=== PATIENT | male | born 1955 | race Caucasian/White ===

== ENCOUNTER 2020-08-10 23:20 | Emergency (ER) | payer OTHER ==
[2020-08-10] MEDS ORDERED: Acetaminophen/HYDROcodone 325-10 MG Tab PO ONE (23:21)
[2020-08-10] MEDS ORDERED: Acetaminophen/HYDROcodone 325-10 MG Tab ONE (23:51)
--- NOTE | 2020-08-10 23:54 | EDM.PDOC ---
ED HPI GENERAL MEDICAL PROBLEM - General Chief Complaint: ENT Problem Stated Complaint: SINUS, EYES ARE CLOSING Time Seen by Provider: 08/10/20 23:40 Source of Information: Reports: Patient History Limitations: Reports: No Limitations - History of Present Illness INITIAL COMMENTS - FREE TEXT/NARRATIVE: This 65 yo male patient reports to the ED with right sided sinus pressure and pain. The patient reports his symptoms have been getting worse over the past 4 days with little to no improvement with Tylenol and ibuprofen. [facility], but the patient was not given any medications for his pain. Onset: Gradual Duration: Day(s):, Constant, Getting Worse Location: Reports: Face (right sided) Quality: Reports: Ache, Pressure, Throbbing Severity: Severe Improves with: Reports: None Worsens with: Reports: None Context: Reports: Other Associated Symptoms: Reports: No Other Symptoms Treatments [employer]: Reports: NSAIDS Face/Facial Pain Score (Numeric/FACES): 6 - Related Data Allergies Allergy/AdvReac Type Severity Reaction Status Date / Time Sulfa (Sulfonamide Allergy Cannot Verified 08/10/20 23:33 Antibiotics) Remember Home Meds: Home Meds Amoxicillin/Potassium Clav [Augmentin 875-125 Tablet] 1 each PO BID 08/10/20 [History] Famotidine [Pepcid AC] 20 mg PO DAILY 08/10/20 [History] Gabapentin [Neurontin] 300 mg PO TID 08/10/20 [History] Past Medical History - Past Health History Medical/Surgical History: Denies Medical/Surgical History Social & Family History - Tobacco Use Tobacco Use Status *Q: Never Tobacco User Second Hand Smoke Exposure: No - Recreational Drug Use Recreational Drug Use: Yes Drug Use in Last 12 Months: No ED ROS ENT - Review of Systems Review Of Systems: Comprehensive ROS is negative, except as noted in HPI. ED EXAM, ENT - Physical Exam Exam: See Below Exam Limited By: No Limitations General Appearance: Alert, WD/WN, Moderate Distress Eye Exam: Bilateral Eye: EOMI, Normal Inspection, PERRL Ears: Normal External Exam, Normal Canal, Hearing Grossly Normal, Normal TMs Nose: Normal Inspection, Normal Mucousa, No Blood Mouth/Throat: Normal Inspection, Normal Gums, Normal Lips, Normal Oropharynx, Normal Teeth Head: Sinus Tenderness (right maxillary and frontal) Neck: Normal Inspection, Supple, Non-Tender, Full Range of Motion Respiratory/Chest: No Respiratory Distress, Lungs Clear, Normal Breath Sounds, No Accessory Muscle Use, Chest Non-Tender Cardiovascular: Normal Peripheral Pulses, Regular Rate, Rhythm, No Edema, No Gallop, No JVD, No Murmur, No Rub (Male) Exam: Deferred Rectal (Males) Exam: Deferred Back: Normal Inspection, Full Range of Motion Extremities: Normal Inspection, Normal Range of Motion, Non-Tender, No Pedal Edema, Normal Capillary Refill Neurological: Alert, Oriented, CN II-XII Intact, Normal Cognition, Normal Gait, Normal Reflexes, No Motor/Sensory Deficits Psychiatric: Normal Affect, Normal Mood Skin: Warm, Dry, Intact, Normal Color, No Rash Lymphatic: No Adenopathy Course - Vital Signs Last Recorded V/S: Last Vital Signs Temp 36.5 C 08/10/20 23:24 Pulse 83 08/10/20 23:24 Resp 18 08/10/20 23:24 BP 110/76 08/10/20 23:24 Pulse Ox 100 08/10/20 23:24 - Orders/Labs/Meds Meds: Medications Discontinued Medications Generic Name Dose Route Start Last Admin Trade Name Terrellq PRN Reason Stop Dose Admin Hydrocodone Bitart/Acetaminophen Confirm 08/10/20 23:51 Acetaminophen/Hydrocodone 325-10 Mg Tab Administered 08/10/20 23:52 Dose 2 tab .ROUTE .STK-MED ONE Departure - Departure Time of Disposition: 23:49 Disposition: Home, Self-Care 01 Condition: Fair Clinical Impression: Sinusitis Qualifiers: Sinusitis location: frontal Chronicity: acute Recurrence: not specified as recurrent Qualified Code(s): J01.10 - Acute frontal sinusitis, unspecified - Discharge Information *PRESCRIPTION DRUG MONITORING PROGRAM REVIEWED*: Not Applicable *COPY OF PRESCRIPTION DRUG MONITORING REPORT IN PATIENT LENORA: Not Applicable Instructions: Sinusitis, Adult, Dsal-ti-Ilnd Forms: ED Department Discharge Care Plan Goals: The patient was advised of the examination results during the visit. The patient was discharged with Dobbins () #2 to take 1 by mouth every 6 hours as needed for pain. The patient was encouraged to continue to take the Augmentin as prescribed. If the patient has any additional symptoms or concerns, the patient should either return to the emergency department or visit his primary care facility. Sepsis Event Note (ED) - Evaluation Sepsis Screening Result: No Definite Risk - Focused Exam Vital Signs: Vital Signs Temp Pulse Resp BP Pulse Ox 08/10/20 23:24 36.5 C 83 18 110/76 100
== END 2020-08-10 23:58 | disposition home or self-care (01) ==
LOC: DL.ED 23:20
DX: J01.10 Acute frontal sinusitis, unspecified (principal); Z88.2 Allergy status to sulfonamides; Z79.899 Other long term (current) drug therapy
CPT/HCPCS: 99283; A9270

== ENCOUNTER 2021-07-14 11:19 | Emergency (ER) | payer OTHER ==
[2021-07-14] MEDS ORDERED: Diphtheria,Pertussis(Acell),Tetanus Vaccine 0.5 ML Syringe IM ONE (11:31)
[2021-07-14] MEDS ORDERED: Lidocaine 1% 30 ML SDV INFILT ONE (11:32)
[2021-07-14] MEDS ORDERED: Bacitracin Oint 1 GM U/D Packet TOP ONE (11:32)
== END 2021-07-14 12:02 | disposition home or self-care (01) ==
LOC: DL.ED 11:19
DX: S61.216A Laceration without foreign body of right little finger without damage to nail, initial encounter (principal); Z88.2 Allergy status to sulfonamides; Z23 Encounter for immunization; W26.8XXA Contact with other sharp object(s), not elsewhere classified, initial encounter
CPT/HCPCS: 12002; 90471; 90715; 99282; 99282-25